=== PATIENT | male | born 1980 | race Caucasian/White ===

== ENCOUNTER 2023-09-14 15:36 | Emergency (ER) | payer BC, SELFPAY ==
[2023-09-14 15:39] VITALS: BP 157/97
--- NOTE | 2023-09-14 16:06 | ED.GENMED ---
History of Present Illness
General
Chief Complaint: DVT/Possible Blood Clot
Source: patient
Exam Limitations: none
Time Seen by Provider: 09/14/23 16:05
Nursing documentation reviewed up to this point in time: agreed with
Travel History
Have you had any contact with someone who has COVID-19?: No
Do you have any symptoms of coronavirus? Fever > 100 degrees, chills, cough, shortness of breath, sore throat, loss of taste or smell, muscle aches, or headache?: No
History of Present Illness
History of Present Illness:
43-year-old male with history of HTN, HLD presents from urgent care with left leg pain and swelling, also rash on left leg and a small patch of rash on the right leg.
3 weeks ago after he was working in his garden and got some thistle scrapes on the legs. Shortly after, he noticed the rash and had a virtual visit with his PCP who put him on a Medrol Dosepak which he finished 2 weeks ago. The rash improved some
but this past week is the lesions are getting more red and noting scattered pustules.
He also notes a patch of pink, mildly tender, not itchy rash left lateral mid rib area.
One week ago he stepped 'wrong' on left foot and felt a pull in his left calf. The calf has become more painful and swollen since. Pain starting to radiate up posterior lower thigh
Denies CP, SOB, denies fever/chills.
Past History
Past History
ED Past Medical History: GERD, HTN and Hypercholesterolemia
ED Past Surgical History: None
Social History
Tobacco: Non-smoker
Alcohol: Occasional
Personal:
Living: with family
Employment: Employed
Review of Systems
Review of Systems
Allergies reviewed?: Yes
All Other Systems: ROS reviewed and negative except as documented in HPI and ROS
Constitutional: Denies fever, fatigue or chills
Respiratory: Denies trouble breathing
Cardiac: Denies chest pain
ABD/GI: Denies abdominal pain or nausea
Musculoskeletal: Reports other (pain, swelling left calf)
Skin: Reports rash (left side) and other (rash mainly left lower leg, small amount on right lower leg)
Neurological: Reports no symptoms
Phy Exam
Physical Exam
Physical Exam:
GENERAL: No acute distress. A&Ox3.
CONSTITUTIONAL: Afebrile.
RESPIRATORY: Regular respirations, nonlabored, lungs clear.
CARDIOVASCULAR: Regular rate and rhythm, no murmurs, no rubs.
GI: Soft, nontender, normal BS
MUSCULOSKELETAL: Left calf is swollen, tender, no erythema or warmth. Moves with ease. Well perfused.
SKIN: Warm, dry, pink. L lower leg with multiple scattered circular abrasions and lesions, several tiny pustules. The lesions are scattered with normal appearing underlying skin, no cellulitis. Small area of similar rash on right lower leg. [place]
smooth, raised pink rash left lateral mid rib area. No vesicles. Surrounding skin normal.
PSYCH: Normal mood and affect. Well kept, interactive and appropriate
NEUROLOGIC: Awake, alert and oriented. No focal neurological deficits
Course
Orders/Labs/Results
Orders:
Orders
09/14/23 16:06
US Periph Venous LOWER Ext LT Urgent
Comment:
Reason For Exam: Swelling and pain
09/14/23 17:50
Aaron Wrap Left-Treatment ONCE
Crutches-Treatment ONCE
Vital Signs
Initial and Last Documented VS:
Initial Vital Signs
Temp Pulse Resp BP Pulse Ox
99.6 F 85 22 157/97 97
09/14/23 15:39 09/14/23 15:39 09/14/23 15:39 09/14/23 15:39 09/14/23 15:39
Last Documented Vital Signs
Temp Pulse Resp BP Pulse Ox
99.6 F 85 22 157/97 97
09/14/23 15:39 09/14/23 15:39 09/14/23 15:39 09/14/23 15:39 09/14/23 15:39
MDM/Problems Addressed
Differential Diagnosis Includes:
DVT, muscle strain
MRSA, staph skin infection
Shingles vs contact dermatitis
MDM/Problems Addressed:
43-year-old male with history of HTN, HLD presents from urgent care with left leg pain and swelling, also rash on left leg and a small patch of rash on the right leg.
3 weeks ago after he was working in his garden and got some thistle scrapes on the legs. Shortly after, he noticed the rash and had a virtual visit with his PCP who put him on a Medrol Dosepak which he finished 2 weeks ago. The rash improved some
but this past week is the lesions are getting more red and noting scattered pustules.
One week ago he stepped 'wrong' on left foot and felt a pull in his left calf. The calf has become more painful and swollen since. Pain starting to radiate up posterior lower thigh
He also notes a patch of pink, mildly tender, not itchy rash left lateral mid rib area. He was told at it looks like shingles, he disagrees. It is not painful, no vesicles.
Denies CP, SOB, denies fever/chills.
Afebrile, NAD
The rash on legs is consistent with staph infection with tiny pustules. The lesions are scattered with normal appearing underlying skin, no cellulitis.
The patch of rash on left side appears to be contact dermatitis but could be shingles as pt finished Medrol dose pack recently and it could have kept it at bay. Pt comfortable taking prescription for Valtrex to fill if symptoms worsen.
Left calf US: No DVT
Aaron wrap to left calf and crutches.
Rx for Mupirocin and Clindamycin sent to his pharmacy
I agree, rash on left side does not look like shingles at this time. Written rx for Valtrex to use if the rash on his left side becomes worse, blisters, painful like shingles.
*Critical Care Note
Total Time (30-74mins, 75-104mins- exclusive of procedures): Not Applicable
ED Attending Note
-
Portions of this chart may have been created with voice recognition software.� Occasional wrong word or��sound alike� substitutions may have occurred due to the inherent limitations of voice recognition software.
Discharge Plan
Departure
Patient Disposition: Home (Routine Discharge)
Date of Disposition: 09/14/23
Time of Disposition: 17:46
Patient with high blood pressure during this ER visit?: No
Condition: Good
Discharge Problem:
Staph skin infection, Strain of calf muscle
Instructions: Muscle Strain (DC), Skin Rash (DC)
Prescriptions:
New
valacyclovir [Valtrex] 1 gram tablet
1,000 mg PO BID Qty: 20 0RF
mupirocin 2 % ointment
1 applic topical BID Qty: 15 0RF
clindamycin HCl 300 mg capsule
300 mg PO QID Qty: 21 0RF
Referrals:
Arie Weeks MD [Non-Admitting Privileges] - Call in 1-3 days for appt
Stand Alone Forms: Return to Work
Activity Restrictions/Additional Instructions:
As we discussed, ultrasound shows no clots.
Wear the aaron wrap as needed for swelling, comfort, support
Use the crutches with gradually increasing weight bearing as comfort permits
See your doctor or the orthopedic doctor if the calf is not much improved in one week.
Tylenol or Ibuprofen as needed for pain
Hold on the the Valtrex prescription and if the left side rash gets worse, starts to blister or become painful, start the medication.
I sent a prescription to your pharmacy for Mupirocin ointment to apply to rash twice daily
I sent a prescription to your pharmacy for Clindamycin antibiotic for the rash
Interventions
Interventions:
*Risk Screen - Suicide Last Done: 09/14/23 15:39
*General Assessment Last Done: 09/14/23 15:41
*Neglect/Abuse Screening Last Done: 09/14/23 15:41
ED- Fall Risk Assessment Last Done: 09/14/23 18:29
*ED COVID-19 Vaccine History Last Done: 09/14/23 15:41
*Nursing Disposition Last Done: 09/14/23 18:30
ED- Cardiac Assessment Last Done: 09/14/23 18:29
ED- Pulmonary Assessment Last Done: 09/14/23 18:29
ED-Peripheral Vascular Assessment Last Done: 09/14/23 18:29
ED-Skin Assessment Last Done: 09/14/23 18:29
Discharge Date and Time
Discharge Date/Time: 09/14/23 18:31
Print Language: [id number]
== END 2023-09-14 18:31 | disposition home or self-care (01) ==
LOC: EMR 15:36
PROVIDERS: EMERGENCY PHYSICIAN Emergency Medicine; FAMILY PHYSICIAN Internal Medicine
DX: L08.9 Local infection of the skin and subcutaneous tissue, unspecified (principal); B95.8 Unspecified staphylococcus as the cause of diseases classified elsewhere; S86.912A Strain of unspecified muscle(s) and tendon(s) at lower leg level, left leg, initial encounter; X58.XXXA Exposure to other specified factors, initial encounter; I10 Essential (primary) hypertension; E78.00 Pure hypercholesterolemia, unspecified
CPT/HCPCS: 99284; 93971